=== PATIENT | male | born 1960 | race Caucasian/White ===

== ENCOUNTER 2021-07-04 19:03 | Emergency (ER) | payer MEDICAID ==
[~2021-07-04] VITALS: Ht 182.9 cm; Wt 86.0 kg
[2021-07-04 19:14] VITALS: BP 109/71
--- NOTE | 2021-07-04 21:23 | NUR ---
WHEN PT WAS TOLD HE WAS BEING DISCHARGED, PT BECAME DISGRUNTLED AND ANGRY AND WAS REQUESTING TO BE TRANSFERRED TO [facility]. I EDUCATED PT THAT THE ER MD WAS NOT TRANSFERRING THE PT AND THAT HE WAS BEING DISCAHRGED. PT STATED HE HAD NO WAY TO GET HOME AND NEEDED A WALKER. I CLARIFIED WITH MANAGER OF TAX THAT PT COULD BE DISCHARGED WITH ONE OF THE ED WALKERS. PT WAS PROVIDED WITH CAB VOUCHER, WALKER, AND ALL DISCHARGE PAPERWORK .STRICT RETURN PRECAUTIONS IDENTIFIED AND DISCUSSED. SECURITY ALSO RESPONDED TO HELP FACILITATE DISCHARGE.
== END 2021-07-04 21:28 | disposition home or self-care (01) ==
LOC: ED 21:15
DX: M25.551 Pain in right hip (principal)
CPT/HCPCS: 99283